=== PATIENT | female | born 1960 | race Caucasian/White ===

== ENCOUNTER 2017-06-03 14:30 | Emergency (ER) | payer BC ==
[~2017-06-03] VITALS: Ht 157.5 cm; Wt 74.8 kg
[2017-06-03] MEDS ORDERED: ONDA8 (16:21)
[2017-06-03] MEDS ORDERED: ERGO400 (16:21)
[2017-06-03] MEDS ORDERED: Hair, Skin & N1 EACH (16:22)
[2017-06-03 16:28] LABS: BASOPHILS ABSOLUTE AUTO 0.01 K/mm3 (0.00-0.23); BASOPHILS PERCENT AUTO 0 % (0-2); EOSINOPHILS ABSOLUTE AUTO 0.01 K/mm3 (0.00-0.68); EOSINOPHILS PERCENT AUTO 0 % (0-6); Hemoglobin 11.3 g/dL (11.5-16.0); IMMATURE GRAN ABSOLUTE AUTO 0.01 K/mm3 (0.00-0.10); IMMATURE GRAN PERCENT AUTO 0 % (0-1); LYMPHOCYTES ABSOLUTE AUTO 2.51 K/mm3 (0.84-5.20); LYMPHOCYTES PERCENT AUTO 48 % (21-46); MONOCYTES ABSOLUTE AUTO 0.33 K/mm3 (0.16-1.47); MONOCYTES PERCENT AUTO 6 % (4-13); Mean Corpuscular HGB 29.4 pg (26.0-34.0); Mean Corpuscular HGB Conc 33.2 g/dL (31.5-36.5); Mean Corpuscular Volume 88 fL (80-100); Mean Platelet Volume 10.5 fL (9.1-12.4); NEUTROPHILS ABSOLUTE AUTO 2.38 K/mm3 (1.96-9.15); NEUTROPHILS PERCENT AUTO 45 % (41-73); Platelet Count 200 K/mm3 (150-400); RDW Coefficient Variation 13.6 % (11.7-14.2); RDW Standard Deviation 44.4 fL (35.1-46.3); Red Blood Cell Count 3.85 M/mm3 (3.80-5.20); White Blood Cell Count 5.25 K/mm3 (4.00-11.30)
[2017-06-03 16:49] LABS: Alanine Aminotransfer (ALT/SGP 29 U/L (12-78); Albumin, Blood 3.9 g/dL (3.4-5.0); Albumin/Globulin Ratio 1.3 (0.8-1.8); Alk Phos 80 U/L (50-136); Anion Gap 6 mmol/L (6-16); Aspartate Aminotrans (AST/SGOT 23 U/L (12-37); Bilirubin, Total 0.3 mg/dL (0.1-1.0); Blood Urea Nitrogen 13 mg/dL (8-24); Bun/Creatinine Ratio 17.9 (12.0-20.0); CO2, Blood 28 mmol/L (21-32); Calcium, Blood 8.6 mg/dL (8.5-10.1); Chloride, Blood 107 mmol/L (98-108); Creatinine, Blood 0.73 mg/dL (0.40-1.00); Globulin, Blood 3.1 g/dL (2.2-4.0); Glomerular Filtration Rate >60 (60-); Glucose, Blood 97 mg/dL (70-99); Magnesium, Blood 2.1 mg/dL (1.6-2.4); Potassium, Blood 3.9 mmol/L (3.5-5.5); Sodium, Blood 141 mmol/L (136-145)
[2017-06-03 16:54] LABS: Troponin I <0.015 ng/mL (0.000-0.040)
[2017-06-03 18:59] LABS: Source, Urine Clean Catch
[2017-06-03 19:02] LABS: Appearance, Urine Clear (Clear); Bilirubin, Urine Neg (Neg); Blood, Urine 1+ (Neg); Color, Urine Yellow (P-Yellow); Glucose Qualitative, Urine Neg (Neg); Ketones, Urine Neg (Neg); Leukocyte Esterase, Urine 2+ (Neg); Nitrite, Urine Neg (Neg); Protein, Urine Neg (Neg); Specific Gravity, Urine 1.015 (1.003-1.022); Urobilinogen, Urine NORM (Normal)
[2017-06-03 19:33] LABS: Bacteria Rare /hpf; Mucus Light (0-Heavy); Squamous Epithelial Cells Mod /hpf (Few)
== END 2017-06-03 20:30 | disposition home or self-care (01) ==
LOC: ER 14:30
PROVIDERS: Emergency Medicine
DX: R07.9 Chest pain, unspecified (principal); R10.13 Epigastric pain; F41.9 Anxiety disorder, unspecified; Z88.0 Allergy status to penicillin; Z88.6 Allergy status to analgesic agent; Z88.5 Allergy status to narcotic agent; Z88.8 Allergy status to other drugs, medicaments and biological substances; Z79.899 Other long term (current) drug therapy
CPT/HCPCS: 71046; 74176; 80053; 81001; 83690; 83735; 83880; 84443; 84484; 85025; 87086; 93005; 93010; J2405; J3010